=== PATIENT | female | born 1960 | race Caucasian/White ===

== ENCOUNTER 2025-08-02 10:34 | Outpatient (CLI) | payer BC ==
[2025-08-02 11:32] LABS: Hematocrit 42.3 % (34.9-44.5); Hemoglobin 13.8 g/dL (12.0-15.5)
[2025-08-02 11:46] LABS: Anion Gap 11 mmol/L (10-20); BUN (Urea Nitrogen) 14 mg/dL (9.8-20.1); Calc. Creatinine Clearance 0 mL/min (70-130); Calcium 11.3 mg/dL (7.8-10.44); Carbon Dioxide 28 mmol/L (23-31); Chloride 104 mmol/L (98-107); Glucose 81 mg/dL (80-115); Potassium 4.1 mmol/L (3.5-5.1); Sodium 139 mmol/L (136-145)
== END 2025-08-02 10:35 | disposition home or self-care (01) ==
LOC: CSHLAB 10:34
PROVIDERS: ATTEND Otolaryngology Otolaryngic Allergy
DX: Z01.818 Encounter for other preprocedural examination (principal); E83.52 Hypercalcemia
CPT/HCPCS: 80048; 85014; 85018; 93005; 93010

== ENCOUNTER 2025-08-09 06:31 | Day surgery (SDC) | payer BC ==
[2025-08-02 11:05] VITALS: BMI 20.7
[2025-08-09] MEDS ORDERED: SUGAMMADEX SODIUM 200 MG/2 ML VIAL ONE (07:35)
[2025-08-09] MEDS ORDERED: Lidocaine 1% PF 5 ML VIAL ONE (07:35)
[2025-08-09] MEDS ORDERED: Ondansetron PF 4 MG/2 ML Vial ONE (07:35)
[2025-08-09] MEDS ORDERED: Rocuronium Bromide 10 MG/ML (10ML VIAL) ONE (07:35)
[2025-08-09] MEDS ORDERED: PROPOFOL 20 ML ONE (07:35)
[2025-08-09] MEDS ORDERED: PHENYLEPHRINE-NS 100 MCG/ML 10 ML SYRINGE ONE (07:42)
[2025-08-09] MEDS ORDERED: Glycopyrrolate 0.2 MG/ML 5 ML SYRINGE ONE (07:46)
[2025-08-09] MEDS ORDERED: CEFAZOLIN 2 GM VIAL ONE (07:58)
[2025-08-09] MEDS ORDERED: Lidocaine 1% w/Epinephrine 1:200K 30 ML VIAL ONE (07:59)
[2025-08-09] MEDS ORDERED: Sevoflurane 250 ML INH ANEST BOTTLE ONE (07:59)
[2025-08-09] MEDS ORDERED: HYDROcodone/Acetaminophen 5/325 mg Tablet ONE (10:52)
[2025-08-09] MEDS ORDERED: hydrALAZINE 20 MG/ML VIAL ONE (11:37)
== END 2025-08-09 12:15 | disposition home or self-care (01) ==
LOC: CSHSDC 06:31
PROVIDERS: ATTEND Otolaryngology Otolaryngic Allergy
PROC: 0GBR0ZZ Excision of Parathyroid Gland, Open Approach (ICD-10-PCS; principal; 2025-08-09)
DX: D35.1 Benign neoplasm of parathyroid gland (principal); E21.3 Hyperparathyroidism, unspecified
CPT/HCPCS: 36415; 83970; J0360; J1100; J2250; J2405; J2704; J3010; Q0162